=== PATIENT | male | born 1975 | race American Indian/Alaskan Native ===

== ENCOUNTER 2018-12-04 18:39 | Emergency (ER) | payer MEDICARE ==
--- NOTE | 2018-12-04 19:53 | Emergency Department Report ---
Blank Doc - Documentation Documentation: 43-year-old male that presents with left wrist pain s/p fall. Denies any other injruies or trauma. This initial assessment/diagnostic orders/clinical plan/treatment(s) is/are subject to change based on patient's health status, clinical progression and re- assessment by fellow clinical providers in the ED. Further treatment and workup at subsequent clinical providers discretion. Patient/guardians urged not to elope from the ED as their condition may be serious if not clinically assessed and managed. Initial orders include: 1- Patient sent to [facility] for further evaluation and treatment 2- xrays
--- NOTE | 2018-12-04 21:43 | XRay Report ---
Right wrist, 3 views INDICATION: Pain following fall today FINDINGS: The joint space is maintained. There is no fracture or dislocation. No spurring or arthriti c change. No bone lesion or periostitis. No significant abnormality. IMPRESSION: Negative study Signer Name: Ashwin Robison MD Signed: 12/04/2018 9:39 PM Workstation Name: [id number]
--- NOTE | 2018-12-04 23:13 | Emergency Department Report ---
ED General Adult HPI - General Chief complaint: Extremity Injury, Upper Stated complaint: LT WRIST PAIN Time Seen by Provider: 12/04/18 19:52 Source: patient, RN notes reviewed Mode of arrival: Ambulatory Limitations: Physical Limitation - History of Present Illness Initial comments: This is a 43-year-old gentleman who is not known to this provider previously. He has a private orthopedist that he is currently following up with at [facility] for a subacute left ankle fracture. He has a boot in place, and is ambulating with crutches. He reports that he was in his usual state of health earlier on today, when he slipped over a railing, landed on his left wrist, and gently hit the left side of his head. He did not lose consciousness. He is a primary complaint of left-sided wrist pain. The pain is sharp and throbbing, increases with palpation and decreases with rest. He also complains of mild sensation of dizziness after hitting his head. He has no other injuries and no other complaints. He does not endorse any sensitivity to light or sound, he does not endorse any loss of vision, he does not endorse any weakness or numbness or unsteady gait. He states that he has pain medicine at home. -: Gradual, This afternoon Location: left, upper extremity Quality: aching Consistency: intermittent Improves with: rest Worsens with: movement - Related Data Allergies Allergy/AdvReac Type Severity Reaction Status Date / Time Penicillins Allergy Rash Verified 12/04/18 18:41 ED Review of Systems ROS: Stated complaint: LT WRIST PAIN Other details as noted in HPI Constitutional: denies: fever Eyes: denies: eye discharge ENT: denies: congestion Respiratory: denies: wheezing Cardiovascular: denies: syncope Gastrointestinal: denies: abdominal pain Musculoskeletal: arthralgia, myalgia Neurological: denies: weakness, numbness, paresthesias, confusion ED Past Medical Hx - Past Medical History Previous Medical History?: No - Surgical History Past Surgical History?: No - Social History Smoking Status: Current Every Day Smoker Substance Use Type: None ED Physical Exam - General Limitations: No Limitations General appearance: alert, in no apparent distress - Head Head exam: Present: atraumatic, normocephalic - Eye Eye exam: Present: normal appearance, PERRL, EOMI, other (visual acuity intact to finger counting and color perception at a close distance). Absent: nystagmus - ENT ENT exam: Present: normal exam, normal orophraynx, mucous membranes moist, normal external ear exam - Neck Neck exam: Present: normal inspection - Respiratory Respiratory exam: Present: normal lung sounds bilaterally. Absent: respiratory distress - Cardiovascular Cardiovascular Exam: Present: regular rate, normal rhythm, normal heart sounds. Absent: bradycardia, tachycardia, irregular rhythm, systolic murmur, diastolic murmur, rubs, gallop - GI/Abdominal GI/Abdominal exam: Present: soft. Absent: distended, tenderness, guarding, rebound, rigid, pulsatile mass - Rectal Rectal exam: Present: deferred - Extremities Exam Extremities exam: Present: normal inspection, full ROM, tenderness (there is left-sided wrist tenderness at the snuffbox. There is minimal tenderness with left thumb axial loading. 2+ pulses noted in the bilateral upper extremities. Compartment soft. There is otherwise no long bony tenderness. Left lower extremity noted to be in a boot.) - Back Exam Back exam: Present: normal inspection, full ROM. Absent: tenderness, CVA tenderness (R), CVA tenderness (L), paraspinal tenderness, vertebral tenderness - Neurological Exam Neurological exam: Present: alert, oriented X3, other (there is no facial droop. The tongue is midline. Extraocular movements are intact bilaterally. Patient speaking in full complete sentences. Shoulder shrug is intact bilaterally. Hearing is grossly intact bilaterally. Visual acuity intact to finger counting and color perception at a close distance. 5/5 strength 4 extremities. Sensation intact to light touch in 4 extremities.) - Psychiatric Psychiatric exam: Present: anxious - Skin Skin exam: Present: warm, dry, intact, normal color. Absent: rash ED Course Vital Signs 12/04/18 19:38 Temperature 98.3 F Pulse Rate 66 Respiratory 18 Rate Blood Pressure 101/66 O2 Sat by Pulse 100 Oximetry ED Medical Decision Making - Lab Data Vital Signs 12/04/18 19:38 Temperature 98.3 F Pulse Rate 66 Respiratory 18 Rate Blood Pressure 101/66 O2 Sat by Pulse 100 Oximetry - Radiology Data Radiology results: report reviewed, image reviewed Report Status: Finalized [facility] [address] [place] [address] XRay Report Signed Patient: JYOTHI DELGADO MR#: [id number] 36 : 1975 Acct:[id number] Age/Sex: 43 / M ADM Date: 12/04/18 Loc: ED Attending Dr: Ordering Physician: MORIS LOWERY NP Date of Service: 12/04/18 Procedure(s): XR wrist 3+V LT Accession Number(s): [id number] cc: MORIS LOWERY NP Fluoro Time In Minutes: Right wrist, 3 views INDICATION: Pain following fall today FINDINGS: The joint space is maintained. There is no fracture or dislocation. No spurring or arthritic change. No bone lesion or periostitis. No significant abnormality. IMPRESSION: Negative study Signer Name: Ashwin Robison MD Signed: 12/04/2018 9:39 PM Workstation Name: [id number] Transcribed By: ANTON Dictated By: Ashwin Robison MD Electronically Authenticated By: Ashwin Robison MD Signed Date/Time: 12/04/182138 DD/ 37 - Medical Decision Making Differential diagnosis, including not limited to: Wrist sprain, strain, fracture, dislocation, mild concussion Assessment and plan: 43-year-old gentleman with left wrist pain and injury, no fracture noted, however tender, therefore, he will be placed in the left wrist thumb spica splint. He'll need to follow up with outpatient orthopedics for this. He's arty following up with an orthopedist for his left ankle. Endorses secondary complaints likely consistent with mild concussion. Clinically sober, GCS of 15. There is no evidence of blunt trauma above the clavicles. He declined pain medication while here in the emergency room. Based off of the history, physical, mechanism of injury, patient is very unlikely to have serious intracranial injury, and at this point time, does not require advanced imaging. Critical care attestation.: If time is entered above; I have spent that time in minutes in the direct care of this critically ill patient, excluding procedure time. ED Disposition Clinical Impression: Left wrist pain, Concussion Disposition: - TO HOME OR SELFCARE Is pt being admited?: No Does the pt Need Aspirin: No Condition: Stable Instructions: Minor Head Injury (ED), Wrist Sprain (ED), SUSPECTED FRACTURE (ED) Additional Instructions: Patient should avoid contact sports and strenuous physical activities until cleared to do so by his primary care doctor or orthopedist. Patient may take ibuprofen, 600 mg, by mouth, with food, every 6 hours, as needed for pain. This may be alternated with Tylenol, 650 mg, by mouth, every 4-6 hours, as needed for pain. Patient should keep the left wrist splint in place, and follow-up with an orthopedic or hand specialist within the next 5-7 days. It's important to follow-up to exclude occult scaphoid injury, which, if not diagnosed, may result in disability, loss of functionality of the left hand. Patient may follow-up with his own client technologies specialist for this, or follow-up with any of the listed client technologies specialist. Return to the emergency room right away with new, worsened or different symptoms, or symptoms not present on initial emergency room evaluation. Patient likely has mild concussion, symptoms will likely include lightheadedness, forgetfulness, confusion, sensitivity to light, sensitivity to sound. He should follow up with his primary care doctor for presumed concussion within the next 7-10 days, and orthopedic or sports physician may also cover concussions. Patient may not return to sports or physical activity until cleared to do so by the primary care or orthopedics. Concussion symptoms last anywhere from a few days to a few months. Therefore, it is important to closely follow up as directed. Referrals: SHARDA BEAR MD [Staff Physician] - 3-5 Days [facility] [Provider Group] - 3-5 Days
[2018-12-05 00:40] VITALS: BP 110/73
== END 2018-12-05 00:42 | disposition home or self-care (01) ==
LOC: ED 18:39
DX: S06.0X9A Concussion with loss of consciousness of unspecified duration, initial encounter (principal); M25.532 Pain in left wrist; F17.200 Nicotine dependence, unspecified, uncomplicated; Z88.0 Allergy status to penicillin; W01.198A Fall on same level from slipping, tripping and stumbling with subsequent striking against other object, initial encounter; Y93.89 Activity, other specified; Y92.89 Other specified places as the place of occurrence of the external cause; Y99.8 Other external cause status